=== PATIENT | female | born 1930 | race Hispanic/Latino ===

== ENCOUNTER 2016-08-19 05:56 | Inpatient (IN) | payer MEDICARE ==
[2016-08-19] MEDS ORDERED: TORADOL ONE (06:23)
[2016-08-19] MEDS ORDERED: ZOFRAN ONE (06:23)
[2016-08-19] MEDS ORDERED: TORADOL IV ONE (06:41)
[2016-08-19] MEDS ORDERED: ZOFRAN IV ONE (06:41)
--- NOTE | 2016-08-19 08:14 | XRay Report ---
RIGHT ANKLE, 2 views: History: Pain. Osteopenia. Comminuted, mildly displaced, mildly angulated fractures of the distal tibial and fibular shafts are identified. Lateral displacement at the tibial fracture site measures up to 1.5 cm. Posterior angulation measures 15 degrees. The proximal tibia and fibula are intact. Normal articulation at the knee and ankle. Soft tissue swelling. IMPRESSION: Traumatic fractures of the distal tibia and fibula as described. Osteopenia.
[2016-08-19] MEDS ORDERED: MORPHINE IV ONE ×2 (08:48→12:56)
[2016-08-19] MEDS ORDERED: NACL 0.9% 1000 ML 1,000 ML IV ONE (08:52)
[2016-08-19] MEDS ORDERED: VANCOMYCIN PHARMACY TO DOSE IV SCH (09:00)
--- NOTE | 2016-08-19 09:03 | Admit Criteria Form ---
Admission Criteria Documentation: MUSCULOSKELETAL DISEASE GRG Clinical Indications for Admission to Inpatient Care (Place 'X' for any and all applicable criteria): Hospital admission is needed for appropriate care of the patient because of 1 or more of the following: [ X]I. Fracture, dislocation, or other musculoskeletal injury requiring inpatient care(medical) as indicated by 1 or more of the following(4)(5)(6)(7) [ ]a) Vertebral fracture requiring observation for instability or neurologic compromise (8) [ ]b) Compartment syndrome (proven or cannot be ruled out during observation level of care) (9) [ ]c) Limb-threatening injury [ ]d) Major injury requiring inpatient stabilization such as traction initiation or external fixation before internal fixation or closure of complex or open fracture [X ]e) Major injury requiring inpatient treatment after emergency or observation level care (as appropriate) [ ]f) Severe pain requiring acute inpatient management [ ]g) Injury with suspicion of abuse or neglect (eg., child, dependent elderly) [ ]II. Newly diagnosed or suspected bone, joint, or orthopedic device infection (e.g., osteomyelitis, septic arthritis) needing 1 or more of the following(1)(2)(3) [ ]a) IV antibiotics that cannot be initiated in other than inpatient setting (e.g., patient too unstable or home infusion not available) [ ]b) Device removal or replacement [ ]c) Bone or soft tissue debridement [ ]d) Joint drainage (drain placement or repetitive aspirations) [ ]III. Severe rheumatologic disease (e.g., systemic lupus erythematosus, rheumatoid arthritis) with complications or comorbidities (Also use Optimal Recovery Care Criteria or General Recovery Criteria as appropriate on the basis of predominant condition), including 1 or more of the following( 10)(11)(12)(13) [ ]a) Severe infection (e.g., [employer] SAL[employer] infection, sepsis) (14) [ ]b) Respiratory complications, including 1 or more of the following : [ ]i) Pleural effusion with respiratory compromise [ ]ii) Pulmonary hypertension with congestive failure [ ]iii) Respiratory failure [ ]iv) Pulmonary hemorrhage (15) [ ]c) Hematologic disease, including 1 or more of the following: [ ]i) Coagulopathy with bleeding [ ]ii) Thrombosis with hypercoagulable state [ ]iii) Thrombotic thrombocytopenic purpura [ ]d) Cerebritis with seizures, psychosis, or other severe abnormalities [ ]e) Vertebral destruction with monitoring needed for cervical myelopathy& possible respiratory compromise [ ]f) Exacerbation that requires inpatient treatment (e.g., intravenous immunosuppression) (16) [ ]g) Acute renal failure [ ]h) Cerebritis with seizures, psychosis, Altered mental status, or other neurologic abnormalities [ ]i) Pericardial effusion with tamponade [ ]j) Vertebral destruction, with monitoring needed for cervical myelopathy and possible respiratory compromise [ ]IV. Severe vasculitis with complications or comorbidities (Also use Optimal Recovery Care Criteria General Recovery Criteria as appropriate on the basis of predominant condition), including 1 or more of the following(11)(12)(17)(18)(19)(20) [ ]a) Exacerbation that requires inpatient treatment (e.g., intravenous immunosuppression) (19)(21) [ ]b) Pulmonary hemorrhage (15) [ ]c) [employer] vasculitis with seizures, psychosis, Altered mental status that is severe or persistent, or other severe abnormalities (22) [ ]d) Cerebral infarction [ ]e) Gastrointestinal ischemia [ ]f) Gangrene or threatened amputation [ ]g) Renal failure (16) [ ]h) Other significant complications of vasculitis ( eg., tissue or organ ischemia, organ dysfunction ) [ ]V. Severe myopathy as indicated by 1 or more of the following (28)(29) [ ]a) New onset of airway compromise or inability to swallow [ ]b) Respiratory deterioration with observation needed for impending respiratory failure [ ]c) Exacerbation that requires inpatient treatment (e.g., intravenous immunosuppression) [ ]. Severe crystal gout (arthropathy) indicated by 1 or more of the following (23)(24) [ ]a) Severe pain requiring acute inpatient management [ ]b) Exacerbation that requires inpatient treatment (e.g., intravenous treatment) [ ]VII.Rhabdomyolysis and 1 or more of the following (25)(26)(27) [ ]a) Acute renal failure [ ]b) Need for intravenous hydration after emergency or observation level care (as appropriate) [ ]c) Inability to maintain oral hydration [ ]d) Change in mental status [ ]e) Electrolyte abnormality that remains after emergency or observation level care (as appropriate) [ ]VIII Post amputation complication, as indicated by ANY ONE of the following [ ]a) Infection [ ]b) Dehiscence [ ]c) Myodesis failure [ ]IX. Severe pain requiring acute inpatient management due to musculoskeletal condition [ ]X. Musculoskeletal Disease and ALL of the following: [ ]a) Symptom or finding for which emergency and observation care have failed or are not considered appropriate (Use General Criteria: Observation Care as appropriate) [ ]b) Presence of ANY ONE of the following [ ]i) A General Admission Criteria [ ]ii) A Pediatric General Admission Criteria The original [facility] [employer] content created by [facility] [employer] has been revised. The portions of the content which have been revised are identified through the use of italic text or in bold, and [facility] has neither reviewed nor approved the modified material. All other unmodified content is copyright [facility] [employer] Please see references footnoted in the original [facility] edition 2016 Admission Criteria Met: Yes
[2016-08-19 09:23] LABS: Basophils % (Auto) 0.4 % (0.0-1.8); Hematocrit 30.7 % (30.3-42.9); Hemoglobin 10.2 gm/dl (10.1-14.3); Mean Corpuscular HGB Conc 33 % (30-34); Mean Corpuscular Hemoglobin 32 pg (28-32); Mean Corpuscular Volume 96 fl (79-97); Platelet Count 219 K/mm3 (140-440); Red Blood Count 3.18 M/mm3 (3.65-5.03); Red Cell Distribution Width 14.6 % (13.2-15.2); White Blood Count 6.4 K/mm3 (4.5-11.0)
[2016-08-19 09:28] LABS: INR 0.98 (0.87-1.13)
[2016-08-19 09:29] LABS: Partial Thromboplastin Time 29.4 Sec. (24.2-36.6)
[2016-08-19 09:43] LABS: Alanine Aminotransferase 11 units/L (7-56); Albumin 3.5 g/dL (3.9-5); Albumin/Globulin Ratio 1.1 %; Alkaline Phosphatase 80 units/L (35-129); Anion Gap 15 mmol/L; Bilirubin,Total 0.3 mg/dL (0.1-1.2); Blood Urea Nitrogen 14 mg/dL (7-17); Calcium 8.9 mg/dL (8.4-10.2); Carbon Dioxide 27 mmol/L (22-30); Glucose 99 mg/dL (65-100); Potassium 4.1 mmol/L (3.6-5.0); Sodium 138 mmol/L (137-145); Total Protein 6.6 g/dL (6.3-8.2)
--- NOTE | 2016-08-19 10:03 | XRay Report ---
Single view chest: History: Possible sepsis. Findings: Cardiomegaly. Trachea is midline. No consolidation, pneumothorax or pleural effusion. Impression: No acute cardiopulmonary findings. 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
[2016-08-19] MEDS ORDERED: VANCOMYCIN 1,250 MG in NACL 0.9% 250ML 250 ML IV ONE (12:45)
--- NOTE | 2016-08-19 15:40 | Emergency Department Report ---
ED General Adult HPI - General Chief complaint: Fall Stated complaint: GROUND LEVEL FALL Time Seen by Provider: 08/19/16 08:48 Source: patient, EMS Mode of arrival: Stretcher Limitations: Physical Limitation - History of Present Illness Initial comments: The patient is ordinarily fully ambulatory. In the cat and dog bather a.m. hours she tripped and injured her right ankle. He complains of severe pain at the area above her ankle itself. She was unable to ambulate after the fall. She presents with her daughter. They state that she has gone to her primary care doctor over the last month for redness and swelling of the ankle itself. X-ray was obtained. It was negative. She has a history of prior cellulitis. However , she was not placed on antibiotics for the redness and swelling. She also has chronically scaly skin of the right ankle area. She does not report any break in the skin or any other previous injury. Patient states that she was not feeling ill prior to this fall. She had no prodromal symptoms. She did not pass out. -: Sudden Location: right, lower extremity Radiation: non-radiation Quality: aching Consistency: constant Improves with: none Worsens with: none Associated Symptoms: denies other symptoms Treatments Prior to Arrival: none - Related Data Home Medications Medication Instructions Recorded Confirmed Last Taken Aspirin [Aspirin BABY CHEW TAB] 81 mg PO QDAY 08/19/16 08/19/16 08/18/16 HYDROcodone/APAP 7.5-325 [[place] 1 each PO Q8HR PRN 08/19/16 08/19/16 Unknown 7.5/325] Hydrochlorothiazide [HCTZ] 25 mg PO QDAY 08/19/16 08/19/16 08/18/16 Meclizine [Antivert] 25 mg PO QID PRN 08/19/16 08/19/16 Unknown Oxybutynin [Ditropan] 5 mg PO BID 08/19/16 08/19/16 08/18/16 carBAMazepine [Carbamazepine ER] 0.5 tab PO TID 08/19/16 08/19/16 08/18/16 sulfaSALAzine [Azulfidine] 500 mg PO Q12HR 08/19/16 08/19/16 08/18/16 Allergies Allergy/AdvReac Type Severity Reaction Status Date / Time No Known Allergies Allergy Verified 08/19/16 06:32 ED Review of Systems ROS: Stated complaint: GROUND LEVEL FALL Other details as noted in HPI Constitutional: denies: chills, fever Eyes: denies: eye pain, eye discharge, vision change ENT: denies: ear pain, throat pain Respiratory: denies: cough, shortness of breath, wheezing Cardiovascular: denies: chest pain, palpitations Endocrine: no symptoms reported Gastrointestinal: denies: abdominal pain, nausea, diarrhea Genitourinary: denies: urgency, dysuria, discharge Musculoskeletal: as per HPI, joint swelling. denies: back pain, arthralgia Skin: as per HPI, rash, change in color. denies: lesions Neurological: denies: headache, weakness, paresthesias Psychiatric: denies: anxiety, depression Hematological/Lymphatic: denies: easy bleeding, easy bruising ED Past Medical Hx - Past Medical History Previous Medical History?: Yes Additional medical history: chron's Dz - Surgical History Past Surgical History?: Yes Additional Surgical History: Appy, Hip replacement pins in LLE - Social History Smoking Status: Former Smoker Substance Use Type: None - Medications Home Medications: Home Medications Medication Instructions Recorded Confirmed Last Taken Type Aspirin [Aspirin BABY CHEW TAB] 81 mg PO QDAY 08/19/16 08/19/16 08/18/16 History HYDROcodone/APAP 7.5-325 [[place] 1 each PO Q8HR PRN 08/19/16 08/19/16 Unknown History 7.5/325] Hydrochlorothiazide [HCTZ] 25 mg PO QDAY 08/19/16 08/19/16 08/18/16 History Meclizine [Antivert] 25 mg PO QID PRN 08/19/16 08/19/16 Unknown History Oxybutynin [Ditropan] 5 mg PO BID 08/19/16 08/19/16 08/18/16 History carBAMazepine [Carbamazepine ER] 0.5 tab PO TID 08/19/16 08/19/16 08/18/16 History sulfaSALAzine [Azulfidine] 500 mg PO Q12HR 08/19/16 08/19/16 08/18/16 History ED Physical Exam - General Limitations: Physical Limitation General appearance: alert, in no apparent distress - Head Head exam: Present: atraumatic, normocephalic - Eye Eye exam: Present: normal appearance, PERRL, EOMI. Absent: scleral icterus - ENT ENT exam: Present: normal exam, mucous membranes moist - Neck Neck exam: Present: normal inspection - Respiratory Respiratory exam: Present: normal lung sounds bilaterally. Absent: respiratory distress - Cardiovascular Cardiovascular Exam: Present: regular rate, normal rhythm. Absent: systolic murmur, diastolic murmur, rubs, gallop - GI/Abdominal GI/Abdominal exam: Present: soft, normal bowel sounds. Absent: distended, tenderness, guarding, rebound, rigid - Extremities Exam Extremities exam: Present: normal inspection - Back Exam Back exam: Present: normal inspection - Neurological Exam Neurological exam: Present: alert, oriented X3, CN II-XII intact. Absent: motor sensory deficit - Psychiatric Psychiatric exam: Present: normal affect, normal mood - Skin Skin exam: Present: warm, dry, intact, normal color, erythema (scaling of the skin of the right ankle but it is intact. There is some ecchymosis). Absent: rash ED Course Vital Signs 08/19/16 08/19/16 08/19/16 06:15 06:30 06:43 Temperature Pulse Rate 71 66 Respiratory 15 12 16 Rate Blood Pressure 157/72 O2 Sat by Pulse 96 Oximetry 08/19/16 08/19/16 08/19/16 06:46 07:00 07:08 Temperature 98.3 F Pulse Rate 73 68 Respiratory 14 12 16 Rate Blood Pressure 156/76 141/69 O2 Sat by Pulse 92 90 98 Oximetry 08/19/16 08/19/16 08/19/16 07:13 07:30 08:00 Temperature Pulse Rate 75 67 Respiratory 18 24 20 Rate Blood Pressure 141/69 138/67 O2 Sat by Pulse 93 94 Oximetry 08/19/16 08/19/16 08/19/16 08:30 09:00 09:15 Temperature Pulse Rate 85 79 Respiratory 22 15 18 Rate Blood Pressure 150/69 150/69 O2 Sat by Pulse 96 90 Oximetry 08/19/16 08/19/16 08/19/16 09:30 09:45 10:00 Temperature Pulse Rate 85 78 Respiratory 16 18 15 Rate Blood Pressure 131/66 122/72 O2 Sat by Pulse 92 92 Oximetry 08/19/16 08/19/16 08/19/16 10:30 11:00 11:30 Temperature Pulse Rate 73 74 76 Respiratory 14 14 11 L Rate Blood Pressure 121/61 113/56 113/56 O2 Sat by Pulse 93 90 95 Oximetry 08/19/16 08/19/16 08/19/16 12:00 12:30 12:57 Temperature Pulse Rate 76 71 Respiratory 16 12 18 Rate Blood Pressure 107/66 117/54 O2 Sat by Pulse 95 94 Oximetry 08/19/16 08/19/16 08/19/16 13:00 13:27 13:30 Temperature Pulse Rate 76 Respiratory 12 18 17 Rate Blood Pressure 147/69 134/79 O2 Sat by Pulse 95 92 Oximetry 08/19/16 08/19/16 14:00 14:30 Temperature Pulse Rate 45 L 73 Respiratory 18 19 Rate Blood Pressure 137/67 140/64 O2 Sat by Pulse 91 91 Oximetry - Reevaluation(s) Reevaluation #1: The patient appears to have a cellulitis of the right ankle which predates her injury today. She was placed on vancomycin for this. She was admitted to the hospitalist service. She was placed in a posterior splint. He orthopedist Dr. Bernabe was informed in consultation. 08/19/16 15:42 ED Medical Decision Making - Lab Data Result diagrams: 08/19/16 08:57 08/19/16 08:57 Laboratory Results - last 24 hr 08/19/16 08/19/16 08/19/16 08:57 08:57 08:57 WBC 6.4 RBC 3.18 L Hgb 10.2 Hct 30.7 MCV 96 MCH 32 MCHC 33 RDW 14.6 Plt Count 219 Lymph % (Auto) 14.1 [place] % (Auto) 7.0 Eos % (Auto) 2.0 Baso % (Auto) 0.4 Lymph # 0.9 L [place] # 0.4 Eos # 0.1 Baso # 0.0 Seg Neutrophils % 76.5 H Seg Neutrophils # 4.9 PT 12.9 INR 0.98 APTT 29.4 VBG pH Sodium 138 Potassium 4.1 Chloride 100.0 Carbon Dioxide 27 Anion Gap 15 BUN 14 Creatinine 0.7 Estimated GFR > 60 BUN/Creatinine Ratio 20.00 Glucose 99 Lactic Acid Calcium 8.9 Total Bilirubin 0.3 AST 18 ALT 11 Alkaline Phosphatase 80 Total Protein 6.6 Albumin 3.5 L Albumin/Globulin Ratio 1.1 Blood Type Antibody Screen 08/19/16 08/19/16 08/19/16 08:57 08:57 08:57 WBC RBC Hgb Hct MCV MCH MCHC RDW Plt Count Lymph % (Auto) [place] % (Auto) Eos % (Auto) Baso % (Auto) Lymph # [place] # Eos # Baso # Seg Neutrophils % Seg Neutrophils # PT INR APTT VBG pH 7.362 Sodium Potassium Chloride Carbon Dioxide Anion Gap BUN Creatinine Estimated GFR BUN/Creatinine Ratio Glucose Lactic Acid 1.2 Calcium Total Bilirubin AST ALT Alkaline Phosphatase Total Protein Albumin Albumin/Globulin Ratio Blood Type O POSITIVE Antibody Screen Negative - Radiology Data interpreted by me: There is a displaced comminuted both bone fracture of the distal third of the tib-fib of the right leg. It is well above the ankle itself. Chest x-ray shows severe scoliosis with previous kyphoplasty Critical care attestation.: If time is entered above; I have spent that time in minutes in the direct care of this critically ill patient, excluding procedure time. ED Disposition Clinical Impression: Cellulitis of right ankle Fracture of lower leg, closed Qualifiers: Encounter type: initial encounter Laterality: right Qualified Code(s): S82.91XA - Unspecified fracture of right lower leg, initial encounter for closed fracture Disposition: OP ADMITTED IP TO THIS HOSP Is pt being admited?: Yes Does the pt Need Aspirin: Yes Condition: Stable Referrals: PRIMARY CARE, [Primary Care Provider] - 3-5 Days Time of Disposition: 15:45
[2016-08-19] MEDS ORDERED: DILAUDID IV ONE (19:04)
[2016-08-19] MEDS ORDERED: DILAUDID ONE (19:04)
--- NOTE | 2016-08-19 19:05 | History and Physical Report ---
History of Present Illness Chief complaint: I fell and broke my leg History of present illness: 86 YO Female with HTN, Vertigo, Chron's disease presents to ED for evaluation. Pt states that she tripped and fell while walking this morning. Pt states that she was unable to bear weight on her right foot after the fall. Pt denies fever , chills, CP, Palpitation, NVD, Syncope, Seizure, loss of bowel or bladder continence, headache, BRBPR, difficulty breathing, productive cough, or recent ill contacts. Past History Past Medical History: hypertension Past Surgical History: appendectomy, total hip replacement Social history: . denies: smoking, alcohol abuse, prescription drug abuse Family history: hypertension Medications and Allergies Allergies Allergy/AdvReac Type Severity Reaction Status Date / Time No Known Allergies Allergy Verified 08/19/16 06:32 Home Medications Medication Instructions Recorded Confirmed Last Taken Type Aspirin [Aspirin BABY CHEW TAB] 81 mg PO QDAY 08/19/16 08/19/16 08/18/16 History HYDROcodone/APAP 7.5-325 [[place] 1 each PO Q8HR PRN 08/19/16 08/19/16 Unknown History 7.5/325] Hydrochlorothiazide [HCTZ] 25 mg PO QDAY 08/19/16 08/19/16 08/18/16 History Meclizine [Antivert] 25 mg PO QID PRN 08/19/16 08/19/16 Unknown History Oxybutynin [Ditropan] 5 mg PO BID 08/19/16 08/19/16 08/18/16 History carBAMazepine [Carbamazepine ER] 0.5 tab PO TID 08/19/16 08/19/16 08/18/16 History sulfaSALAzine [Azulfidine] 500 mg PO Q12HR 08/19/16 08/19/16 08/18/16 History Active Meds: Active Medications Vancomycin HCl (Vancomycin/Ns 1 Gm/250 Ml) 1 gm in 250 mls @ 166.667 mls/hr IV Q18H RICARDO Vancomycin HCl (Vancomycin Pharmacy To Dose) 1 each IV PKCONSULT RICARDO PRN Reason: Protocol Review of Systems All systems: negative Constitutional: other (fall) Exam - Constitutional Vitals: Temp Pulse Resp BP Pulse Ox 98.3 F 97 H 16 157/74 88 08/19/16 07:08 08/19/16 18:00 08/19/16 18:00 08/19/16 18:00 08/19/16 18:00 General appearance: Present: cachectic - EENT Eyes: Present: PERRL ENT: hearing intact, clear oral mucosa - Neck Neck: Present: supple, normal ROM - Respiratory Respiratory effort: normal Respiratory: bilateral: CTA - Cardiovascular Heart Sounds: Present: S1 & S2. Absent: rub, click - Extremities Extremities: pulses symmetrical, No edema Peripheral Pulses: within normal limits - Abdominal General gastrointestinal: Present: soft, non-tender, non-distended, normal bowel sounds Female genitourinary: Present: normal - Integumentary Integumentary: Present: clear, warm, dry - Musculoskeletal Musculoskeletal: strength equal bilaterally, other (RLE splint in place. ) - Psychiatric Psychiatric: appropriate mood/affect, intact judgment & insight - Neurologic Neurologic: CNII-XII intact, moves all extremities Results - Labs CBC & Chem 7: 08/19/16 08:57 08/19/16 08:57 Labs: Abnormal lab results 08/19/16 08/19/16 Range/Units 08:57 08:57 RBC 3.18 L (3.65-5.03) M/mm3 Lymph # 0.9 L (1.2-5.4) K/mm3 Seg Neutrophils % 76.5 H (40.0-70.0) % Albumin 3.5 L (3.9-5) g/dL Assessment and Plan - Patient Problems (1) Accelerated hypertension Current Visit: Yes Status: Acute Plan to address problem: Monitor BP q shift, continue current therapy. (2) Pain Current Visit: Yes Status: Acute Plan to address problem: Pain control, with percocet, and dilaudid tid/prn. (3) Dementia Current Visit: Yes Status: Acute Qualifiers: Dementia type: D Alzheimer's disease onset: A Dementia behavioral disturbance: D Plan to address problem: Fall precautions, supportive care, (4) Debility Current Visit: Yes Status: Acute Plan to address problem: Bed alarm, fall precautions. PT consulted, (5) Fracture of lower leg, closed Current Visit: Yes Status: Acute Qualifiers: Encounter type: initial encounter Laterality: right Fracture healing: F Qualified Code(s): S82.91XA - Unspecified fracture of right lower leg, initial encounter for closed fracture Plan to address problem: Ortho consulted, hold aspirin pending surgical intervention. (6) DVT prophylaxis Current Visit: Yes Status: Acute
[2016-08-19] MEDS ORDERED: NORCO 5/325 PO PRN (19:16)
[2016-08-19] MEDS ORDERED: ZOFRAN IV PRN (19:16)
[2016-08-19] MEDS ORDERED: TYLENOL PO PRN (19:16)
[2016-08-19] MEDS ORDERED: MILK OF MAGNESIA PO PRN (19:16)
[2016-08-19] MEDS ORDERED: DULCOLAX PR PRN (19:16)
[2016-08-19] MEDS ORDERED: ANTIVERT PO PRN (19:21)
[2016-08-19] MEDS ORDERED: CARBAMAZEPINE PO SCH (20:00)
[2016-08-19] MEDS: AZULFIDINE PO SCH (23:35)
[2016-08-19] MEDS: DITROPAN PO SCH (23:35)
[2016-08-19] MEDS: SENOKOT S PO SCH (23:35)
[2016-08-19 23:48] LABS: Bacteria,Urine 1+ /HPF (Negative); Bilirubin,Urine NEG (Negative); Blood,Urine SM (Negative); Ketones,Urine NEG (Negative); Leukocyte Esterase,Urine LG (Negative); Mucus,Urine FEW /HPF; Nitrite,Urine POS (Negative); Protein,Urine <15 mg/dL mg/dL (Negative); Urobilinogen,Urine < 2.0 mg/dL (<2.0)
[2016-08-20] MEDS ORDERED: NACL 0.9% 1000 ML 1,000 ML ONE ×2 (05:31→11:58)
[2016-08-20] MEDS: VANCOMYCIN/NS 1 GM/250 ML 1 GM/250 ML BAG IV SCH (06:08)
[2016-08-20] MEDS: DILAUDID IV PRN ×6 (06:12→20:06)
--- NOTE | 2016-08-20 08:42 | Progress Note ---
Assessment and Plan Assessment and plan: 86 YO Female with HTN, Vertigo, Chron's disease presents to ED for evaluation. Pt states that she tripped and fell while walking. Pt stated that she was unable to bear weight on her right foot after the fall. X-rays from the emergency room showed a right displaced tib-fib fracture as well as evidence of osteoporosis. (1) Accelerated hypertension Current Visit: Yes Status: Acute Plan to address problem: Monitor BP q shift, continue current therapy. (2) Pain Current Visit: Yes Status: Acute Plan to address problem: Pain control, with percocet, and dilaudid tid/prn. (3) Dementia Current Visit: Yes Status: Acute Qualifiers: Dementia type: D Alzheimer's disease onset: A Dementia behavioral disturbance: D Plan to address problem: Fall precautions, supportive care, (4) Debility Current Visit: Yes Status: Acute Plan to address problem: Bed alarm, fall precautions. PT consulted, (5) Fracture of lower leg, closed Current Visit: Yes Status: Acute Qualifiers: Encounter type: initial encounter Laterality: right Fracture healing: F Qualified Code(s): S82.91XA - Unspecified fracture of right lower leg, initial encounter for closed fracture Plan to address problem: Ortho consulted, hold aspirin pending surgical intervention. s/p surgery today (6) DVT prophylaxis Current Visit: Yes Status: Acute lovenox History Interval history: Patient seen and examined at PACU. Medical records and medication list reviewed. No acute event overnight noted by the RN. Patient denies any chest pain or difficulty breathing. Patient tolerated the surgery. c/o rt ankle pain. Discussed plan of care at bedside with patient and her daughter. Hospitalist Physical - Physical exam Narrative exam: General appearance: Present: elderly WF - EENT Eyes: Present: PERRL ENT: hearing intact, clear oral mucosa - Neck Neck: Present: supple, normal ROM - Respiratory Respiratory effort: normal Respiratory: bilateral: CTA - Cardiovascular Heart Sounds: Present: S1 & S2. Absent: rub, click - Extremities Extremities: pulses symmetrical, No edema Peripheral Pulses: within normal limits - Abdominal General gastrointestinal: Present: soft, non-tender, non-distended, normal bowel sounds Female genitourinary: Present: normal - Integumentary Integumentary: Present: clear, warm, dry - Musculoskeletal Musculoskeletal: strength equal bilaterally, other (RLE surgical dressing in place. ) - Psychiatric Psychiatric: appropriate mood/affect, intact judgment & insight - Neurologic Neurologic: CNII-XII intact, moves all extremities - Constitutional Vitals: Temp Pulse Resp BP Pulse Ox 98.9 F 75 16 123/63 95 08/20/16 07:49 08/20/16 07:49 08/20/16 07:49 08/20/16 07:49 08/20/16 07:49 Results - Labs CBC & Chem 7: 08/21/16 00:23 08/19/16 08:57 Labs: Laboratory Last Values WBC 6.4 K/mm3 (4.5-11.0) 08/19/16 08:57 RBC 3.18 M/mm3 (3.65-5.03) L 08/19/16 08:57 Hgb 10.2 gm/dl (10.1-14.3) 08/19/16 08:57 Hct 30.7 % (30.3-42.9) 08/19/16 08:57 MCV 96 fl (79-97) 08/19/16 08:57 MCH 32 pg (28-32) 08/19/16 08:57 MCHC 33 % (30-34) 08/19/16 08:57 RDW 14.6 % (13.2-15.2) 08/19/16 08:57 Plt Count 219 K/mm3 (140-440) 08/19/16 08:57 Lymph % (Auto) 14.1 % (13.4-35.0) 08/19/16 08:57 [place] % (Auto) 7.0 % (0.0-7.3) 08/19/16 08:57 Eos % (Auto) 2.0 % (0.0-4.3) 08/19/16 08:57 Baso % (Auto) 0.4 % (0.0-1.8) 08/19/16 08:57 Lymph # 0.9 K/mm3 (1.2-5.4) L 08/19/16 08:57 [place] # 0.4 K/mm3 (0.0-0.8) 08/19/16 08:57 Eos # 0.1 K/mm3 (0.0-0.4) 08/19/16 08:57 Baso # 0.0 K/mm3 (0.0-0.1) 08/19/16 08:57 Seg Neutrophils % 76.5 % (40.0-70.0) H 08/19/16 08:57 Seg Neutrophils # 4.9 K/mm3 (1.8-7.7) 08/19/16 08:57 PT 12.9 Sec. (12.2-14.9) 08/19/16 08:57 INR 0.98 (0.87-1.13) 08/19/16 08:57 APTT 29.4 Sec. (24.2-36.6) 08/19/16 08:57 VBG pH 7.362 (7.320-7.420) 08/19/16 08:57 Sodium 138 mmol/L (137-145) 08/19/16 08:57 Potassium 4.1 mmol/L (3.6-5.0) 08/19/16 08:57 Chloride 100.0 mmol/L (98-107) 08/19/16 08:57 Carbon Dioxide 27 mmol/L (22-30) 08/19/16 08:57 Anion Gap 15 mmol/L 08/19/16 08:57 BUN 14 mg/dL (7-17) 08/19/16 08:57 Creatinine 0.7 mg/dL (0.7-1.2) 08/19/16 08:57 Estimated GFR > 60 ml/min 08/19/16 08:57 BUN/Creatinine Ratio 20.00 % 08/19/16 08:57 Glucose 99 mg/dL (65-100) 08/19/16 08:57 Lactic Acid 1.2 mmol/L (0.7-2.0) 08/19/16 08:57 Calcium 8.9 mg/dL (8.4-10.2) 08/19/16 08:57 Total Bilirubin 0.3 mg/dL (0.1-1.2) 08/19/16 08:57 AST 18 units/L (5-40) 08/19/16 08:57 ALT 11 units/L (7-56) 08/19/16 08:57 Alkaline Phosphatase 80 units/L (35-129) 08/19/16 08:57 Total Protein 6.6 g/dL (6.3-8.2) 08/19/16 08:57 Albumin 3.5 g/dL (3.9-5) L 08/19/16 08:57 Albumin/Globulin Ratio 1.1 % 08/19/16 08:57 Urine Color Yellow (Yellow) 08/19/16 22:55 Urine Turbidity Clear (Clear) 08/19/16 22:55 Urine pH 6.0 (5.0-7.0) 08/19/16 22:55 Ur Specific [place] 1.013 (1.003-1.030) 08/19/16 22:55 Urine Protein <15 mg/dl mg/dL (Negative) 08/19/16 22:55 Urine Glucose (UA) Neg mg/dL (Negative) 08/19/16 22: Urine Ketones Neg mg/dL (Negative) 08/19/16 22: Urine Blood Sm (Negative) 08/19/16 22:55 Urine Nitrite Pos (Negative) 08/19/16 22:55 Urine Bilirubin Neg (Negative) 08/19/16 22: Urine Urobilinogen < 2.0 mg/dL (<2.0) 08/19/16 22:55 Ur Leukocyte Esterase Lg (Negative) 08/19/16 22:55 Urine WBC (Auto) 135.0 /HPF (0.0-6.0) H 08/19/16 22:55 Urine RBC (Auto) 2.0 /HPF (0.0-6.0) 08/19/16 22:55 U Epithel Cells (Auto) 3.0 /HPF (0-13.0) 08/19/16 22:55 Urine Bacteria (Auto) 1+ /HPF (Negative) 08/19/16 22: Urine Mucus Few /HPF 08/19/16 22:55 Blood Type O POSITIVE 08/19/16 08:57 Antibody Screen Negative 08/19/16 08:57
[2016-08-20] MEDS: AZULFIDINE PO SCH ×2 (09:12→22:41)
[2016-08-20] MEDS: DITROPAN PO SCH ×2 (09:12→22:41)
[2016-08-20] MEDS: HCTZ PO SCH (09:13)
--- NOTE | 2016-08-20 10:13 | Anesthesia Consultation ---
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
--- NOTE | 2016-08-20 10:14 | Anesthesia Day of Surgery ---
Anesthesia Day of Surgery - Day of Surgery Patient Examined: Yes Patient H&P Reviewed: Yes Patient is NPO: Yes
[2016-08-20] MEDS ORDERED: VERSED ONE (10:53)
[2016-08-20] MEDS ORDERED: DIPRIVAN 10 MG/ML IV ONE (10:53)
[2016-08-20] MEDS ORDERED: XYLOCAINE MPF 2% ONE (11:28)
[2016-08-20] MEDS ORDERED: SODIUM CHLORIDE FLUSH SYRINGE 10 ML IV NR (13:00)
--- NOTE | 2016-08-20 13:05 | Procedure Note ---
Date of procedure: 08/20/16 Pre-op diagnosis: right tib-fib fracture Post-op diagnosis: same Procedure: Procedure closed reduction and insertion of intramedullary nail right tibia Indications 86-year-old female fell at home sustaining a displaced distal third tibia fibula fracture closed Procedure Patient was brought to the OR on the hospital bed she was given a spinal anesthesia following this the patient was transferred to the operating table and placed in a supine position. The right lower extremity was then prepped and draped in the usual sterile manner a timeout procedure was done to identify the proper operative site. A midline incision was made over the patellar tendon this was taken down sharply to skin and subcutaneous next the entry point to the medullary canal was assessed using digital palpation was followed by insertion of a awl. Next a guidewire was then inserted down the shaft crossed the fracture site this is done using C-arm fluoroscopy next the canal was reamed to 12.5 mm diameter measuring the length of the oscar 330 mm long oscar was selected following this the wound was irrigated and the nail was inserted using a antegrade technique following insertion of the IM nail this was then locked proximally as well as distally again AP and lateral views were used to assess the reduction and placement of the hardware. Following this the incisions were again irrigated using normal saline solution I was closed in a standard routine fashion and dressings were applied the patient tolerated procedure and no complications Anesthesia: spinal Surgeon: ALEJANDRINA GALVEZ Estimated blood loss: minimal Pathology: none Condition: stable Disposition: PACU
--- NOTE | 2016-08-20 13:08 | Consultation ---
History of Present Illness - [facility] Consult date: 08/20/16 Consult reason: fracture History of present illness: 86-year-old female who fell at home and afterwards was unable to weight-bear on her right lower extremity she was brought to the emergency room x-rays were obtained revealing a displaced distal tibia-fibula fracture. She denies any other complaints Past History Past Medical History: hypertension Past Surgical History: appendectomy, total hip replacement Social history: . denies: smoking, alcohol abuse, prescription drug abuse Family history: hypertension Medications and Allergies Allergies Allergy/AdvReac Type Severity Reaction Status Date / Time No Known Allergies Allergy Verified 08/19/16 06:32 Home Medications Medication Instructions Recorded Confirmed Last Taken Type Aspirin [Aspirin BABY CHEW TAB] 81 mg PO QDAY 08/19/16 08/19/16 08/18/16 History HYDROcodone/APAP 7.5-325 [[place] 1 each PO Q8HR PRN 08/19/16 08/19/16 Unknown History 7.5/325] Hydrochlorothiazide [HCTZ] 25 mg PO QDAY 08/19/16 08/19/16 08/18/16 History Meclizine [Antivert] 25 mg PO QID PRN 08/19/16 08/19/16 Unknown History Oxybutynin [Ditropan] 5 mg PO BID 08/19/16 08/19/16 08/18/16 History carBAMazepine [Carbamazepine ER] 0.5 tab PO TID 08/19/16 08/19/16 08/18/16 History sulfaSALAzine [Azulfidine] 500 mg PO Q12HR 08/19/16 08/19/16 08/18/16 History Active Meds: Active Medications Acetaminophen (Tylenol) 650 mg PO Q4H PRN PRN Reason: Pain MILD(1-3)/Fever >100.5/GARCIA Acetaminophen/Hydrocodone Bitart ([place] 5/325) 1 each PO Q6H PRN PRN Reason: Pain, Moderate (4-6) Last Admin: 08/19/16 23:35 Dose: 1 each Bisacodyl (Dulcolax) 10 mg IA QDAY PRN PRN Reason: Constipation unrelieved by MOM Carbamazepine (Tegretol) 100 mg PO TID RICARDO Last Admin: 08/20/16 09:13 Dose: 100 mg Enoxaparin Sodium (Lovenox) 40 mg SUB-Q QDAY [facility] Hydrochlorothiazide (Hctz) 25 mg PO QDAY [facility] Last Admin: 08/20/16 09:13 Dose: 25 mg Hydromorphone HCl (Dilaudid) 0.5 mg IV Q6H PRN PRN Reason: Pain , Severe (7-10) Last Admin: 08/20/16 06:12 Dose: 0.5 mg Vancomycin HCl (Vancomycin/Ns 1 Gm/250 Ml) 1 gm in 250 mls @ 166.667 mls/hr IV Q18H [facility] Last Admin: 08/20/16 06:08 Dose: 166.667 mls/hr Magnesium Hydroxide (Milk Of Magnesia) 30 ml PO Q4H PRN PRN Reason: Constipation Meclizine HCl (Antivert) 25 mg PO QID PRN PRN Reason: Vertigo Ondansetron HCl (Zofran) 4 mg IV Q8H PRN PRN Reason: N/V unrelieved by Reglan Last Admin: 08/20/16 06:19 Dose: 4 mg Oxybutynin Chloride (Ditropan) 5 mg PO BID [facility] Last Admin: 08/20/16 09:12 Dose: 5 mg Senna/Docusate Sodium (Senokot S) 1 tab PO QHS [facility] Last Admin: 08/19/16 23:35 Dose: 1 tab Sodium Chloride (Sodium Chloride Flush Syringe 10 Ml) 10 ml IV PRN NR Sulfasalazine (Azulfidine) 500 mg PO Q12HR [facility] Last Admin: 08/20/16 09:12 Dose: 500 mg Vancomycin HCl (Vancomycin Pharmacy To Dose) 1 each IV PKCONSULT RICARDO PRN Reason: Protocol Physical Examination - Physical exam Narrative exam: A well-nourished well-developed elderly female in no obvious distress head and neck exam normocephalic atraumatic neck was supple and nontender significant orthopedic findings relates to the lower extremities on the right leg she was noted to have obvious deformity with gross motion detected at the distal third portion of the leg the skin was intact as well as the distal neurovascular status X-rays from the emergency room were reviewed by me and show a right displaced tib-fib fracture as well as evidence of osteoporosis Assessment and Plan Assessment right tib-fib fracture displaced Recommendation patient will require operative fixation with intramedullary oscar by physical therapy for gait training
[2016-08-20] MEDS ORDERED: ZOFRAN IV PRN (13:53)
[2016-08-20] MEDS ORDERED: DILAUDID ONE (14:00)
--- NOTE | 2016-08-20 16:46 | Post Anesthesia Evaluation ---
- Post Anesthesia Evaluation Patient Participated: Yes Airway Patent: Yes Stable Respiratory Function: Yes Nausea/Vomiting: No Temp > 96.8F: Yes Pain Manageable: Yes Adequeate Hydration: Yes Anesthesia Complications: No
[2016-08-20] MEDS: NACL 0.9% 1000 ML 1,000 ML IV SCH (20:11)
[2016-08-20] MEDS: SENOKOT S PO SCH (22:41)
[2016-08-21] MEDS: VANCOMYCIN/NS 1 GM/250 ML 1 GM/250 ML BAG IV SCH ×2 (00:34→18:53)
[2016-08-21 00:53] LABS: Hematocrit 24.5 % (30.3-42.9); Hemoglobin 8.2 gm/dl (10.1-14.3); Mean Corpuscular HGB Conc 33 % (30-34); Mean Corpuscular Hemoglobin 33 pg (28-32); Mean Corpuscular Volume 98 fl (79-97); Platelet Count 160 K/mm3 (140-440); Red Cell Distribution Width 14.5 % (13.2-15.2); White Blood Count 6.8 K/mm3 (4.5-11.0)
--- NOTE | 2016-08-21 06:05 | Cat Scan Report ---
FINAL REPORT PROCEDURE: CT HEAD/BRAIN WO CON TECHNIQUE: Computerized tomography of the head was performed without contrast material. HISTORY: Change in mental status COMPARISON: No prior studies are available for comparison. FINDINGS: Skull and scalp: Normal. Paranasal sinuses: Normal. Ventricles and subarachnoid spaces: There is moderate cerebral atrophy. Cerebrum: No evidence of hemorrhage, acute infarction or mass . Cerebellum and brainstem: No evidence of hemorrhage, acute infarction or mass. Vasculature: Normal. Comments: Some patchy areas of low density in the cerebral hemisphere white matter is nonspecific but could be due to mild chronic small vessel ischemic change. Other vague areas of low density may be due to a CT scan artifact. There may be small old lacunar infarcts in the basal ganglia bilaterally. There is mild motion artifact on some slices which partially limits this exam. IMPRESSION: 1. There is no CT evidence of intracranial hemorrhage or edema or shift or distinct acute finding on this noncontrast scan. 2. Moderate atrophy. Mild chronic small vessel ischemic change. 3. Some probable tiny old lacunar infarcts in the basal ganglia bilaterally. 4. Mild motion artifact on some slices partially limits this exam.
--- NOTE | 2016-08-21 06:24 | Event Note ---
Date: 08/21/16 patient slurred speech, morphine given earlier Check CT head
[2016-08-21] MEDS: NACL 0.9% 1000 ML 1,000 ML IV SCH (08:54)
[2016-08-21] MEDS: LOVENOX SUB-Q SCH (09:10)
[2016-08-21] MEDS: AZULFIDINE PO SCH ×2 (09:10→23:42)
[2016-08-21] MEDS: HCTZ PO SCH (09:10)
[2016-08-21] MEDS: DITROPAN PO SCH ×2 (09:10→23:42)
--- NOTE | 2016-08-21 10:28 | XRay Report ---
FLUOROSCOPIC INTRAOPERATIVE IMAGE RIGHT TIBIA: 08/20/16 CLINICAL: Fracture. FINDINGS: A single AP view shows a tibial oscar with a single screw traversing the comminuted fracture of the distal tibia. The screw appears to extend into the distal fibula. Comminuted mildly displaced fracture of the distal fibula. For details, please refer to the operative report.
--- NOTE | 2016-08-21 10:29 | XRay Report ---
INTRAOPERATIVE FLUOROSCOPIC IMAGES RIGHT ANKLE 2 VIEWS: 08/19/16 19:16:00 FINDINGS: AP and lateral fluoroscopic images demonstrate placement of a tibial oscar with a single screw. The oscar traverses a comminuted fracture of the distal tibia. Mildly displaced comminuted fracture of the distal fibula. For more details, please refer to the operative report.
[2016-08-21] MEDS: ASPIRIN PO SCH (10:57)
--- NOTE | 2016-08-21 14:59 | XRay Report ---
FINAL REPORT PROCEDURE: XR CHEST 1V AP TECHNIQUE: Chest radiograph anteroposterior view. CPT 36112 HISTORY: Aspiration COMPARISON: No prior studies are available for comparison. FINDINGS: Heart: Normal. Mediastinum/Vessels: Normal. Lungs/Pleural space: Likely mild areas of scarring are seen in the lungs without evidence of focal infiltrate. No evidence of hyperinflation is seen to suggest COPD. Bony thorax: Prominent thoracolumbar scoliosis is seen with multiple compression deformities, some of which have been previously treated. Life support devices: None. IMPRESSION: No acute cardiopulmonary abnormality. Likely mild scarring is seen in the lungs. Treated and untreated thoracic and lumbar compression deformities are seen.
[2016-08-21] MEDS: LEVAQUIN 750MG/150ML 750 MG/150 ML BAG IV SCH (15:05)
[2016-08-21 15:19] LABS: Anion Gap 17 mmol/L; Blood Urea Nitrogen 6 mg/dL (7-17); Calcium 7.6 mg/dL (8.4-10.2); Carbon Dioxide 24 mmol/L (22-30); Chloride 97.3 mmol/L (98-107); Glucose 128 mg/dL (65-100); Potassium 3.5 mmol/L (3.6-5.0); Sodium 135 mmol/L (137-145)
[2016-08-21] MEDS ORDERED: ATIVAN IV ONE (15:49)
--- NOTE | 2016-08-21 16:12 | Progress Note ---
Assessment and Plan 86 YO Female with HTN, Vertigo, Chron's disease presents to ED for evaluation. Pt states that she tripped and fell while walking. Pt stated that she was unable to bear weight on her right foot after the fall. X-rays from the emergency room showed a right displaced tib-fib fracture as well as evidence of osteoporosis. s/p surgery on 08/20/16, now developed slurred speech following surgery. --possible CVA CT head negative will wait MRI result place on aspirin and statin neuro consult if MRI positive --UTI place on levaquin, obtain urine CX --Dementia Fall precautions, supportive care, --Fracture of lower leg, closed Ortho consulted, s/p surgery 08/20/16 PT consultd --HTN will cont home meds --Anemia will monitor H and H --Hypokalemia replace --DVT prophylaxis lovenox Subjective Date of service: 08/21/16 Interval history: Patient seen and examined. Medical records and medication list reviewed. Discussed plan of care at bedside with her daughter. Patient appears to be more sleepy since last night, CT head negative, does not have any acute focal weakness per the nurse and daughter she is having slurred speech Objective - Exam Narrative Exam: General appearance: Present: elderly WF appears drowsy and mumbling words - EENT Eyes: Present: PERRL ENT: clear oral mucosa - Neck Neck: Present: supple, normal ROM - Respiratory Respiratory effort: normal Respiratory: bilateral: CTA - Cardiovascular Heart Sounds: Present: S1 & S2. Absent: rub, click - Extremities Extremities: pulses symmetrical, No edema Peripheral Pulses: within normal limits - Abdominal General gastrointestinal: Present: soft, non-tender, non-distended, normal bowel sounds Female genitourinary: Present: normal - Integumentary Integumentary: Present: clear, warm, dry - Musculoskeletal Musculoskeletal: other (RLE surgical dressing in place. ) - Psychiatric Psychiatric: unable to assess - Neurologic Neurologic: moves all extremities - Constitutional Vitals: Vital Signs - 12hr 08/21/16 08/21/16 08:00 13:00 Temperature 99.9 F H 100.9 F H Pulse Rate [ 82 103 H Right Brachial] Respiratory 18 20 Rate Blood Pressure 149/70 127/58 [Right Arm] O2 Sat by Pulse 98 98 Oximetry - Labs CBC & Chem 7: 08/21/16 00:23 08/21/16 14:47 Labs: Abnormal lab results 08/21/16 08/21/16 08/21/16 Range/Units 00:01 00:23 14:47 RBC 2.50 L (3.65-5.03) M/mm3 Hgb 8.2 L (10.1-14.3) gm/dl Hct 24.5 L D (30.3-42.9) % MCV 98 H (79-97) fl MCH 33 H (28-32) pg Sodium 135 L (137-145) mmol/L Potassium 3.5 L (3.6-5.0) mmol/L Chloride 97.3 L (98-107) mmol/L BUN 6 L (7-17) mg/dL Creatinine 0.5 L (0.7-1.2) mg/dL Glucose 128 H (65-100) mg/dL POC Glucose 119 H (70-105) Calcium 7.6 L (8.4-10.2) mg/dL
[2016-08-21] MEDS: SENOKOT S PO SCH (23:42)
[2016-08-22] MEDS: NACL 0.9% 1000 ML 1,000 ML IV SCH (04:33)
[2016-08-22 04:36] LABS: Basophils % (Auto) 0.4 % (0.0-1.8); Eosinophils % (Auto) 4.6 % (0.0-4.3); Hematocrit 22.4 % (30.3-42.9); Hemoglobin 7.5 gm/dl (10.1-14.3); Mean Corpuscular HGB Conc 33 % (30-34); Mean Corpuscular Hemoglobin 32 pg (28-32); Mean Corpuscular Volume 96 fl (79-97); Platelet Count 152 K/mm3 (140-440); Red Blood Count 2.33 M/mm3 (3.65-5.03); Red Cell Distribution Width 14.4 % (13.2-15.2)
[2016-08-22 04:43] LABS: Anion Gap 17 mmol/L; Blood Urea Nitrogen 4 mg/dL (7-17); Calcium 7.5 mg/dL (8.4-10.2); Carbon Dioxide 24 mmol/L (22-30); Chloride 95.7 mmol/L (98-107); Glucose 108 mg/dL (65-100); Potassium 3.4 mmol/L (3.6-5.0); Sodium 133 mmol/L (137-145)
[2016-08-22] MEDS: LOVENOX SUB-Q SCH ×2 (08:08→10:39)
[2016-08-22] MEDS: AZULFIDINE PO SCH ×3 (08:08→21:30)
[2016-08-22] MEDS: ASPIRIN PO SCH ×2 (08:08→10:38)
[2016-08-22] MEDS: HCTZ PO SCH ×2 (08:09→10:39)
--- NOTE | 2016-08-22 08:55 | Progress Note ---
Assessment and Plan S/P IM nail right tibia change in mental status r/o CVA continue observation, awaiting MRI scan brain discharge planning underway Subjective Date of service: 08/22/16 Interval history: change in mental status more confused now than before surgery Objective Vital signs: Vital Signs - 12hr 08/21/16 08/22/16 08/22/16 22:00 00:00 04:00 Temperature 98.3 F 98.3 F Pulse Rate [ 83 89 Right Brachial] Respiratory 18 18 Rate Blood Pressure 131/61 127/62 [Right Arm] O2 Sat by Pulse 98 99 93 Oximetry 08/22/16 08/22/16 04:40 07:00 Temperature 98.8 F Pulse Rate [ 83 Right Brachial] Respiratory 24 Rate Blood Pressure 143/75 [Right Arm] O2 Sat by Pulse 98 96 Oximetry Narrative Exam: post op dressing intact, incision clean and dry - Labs CBC & BMP: 08/22/16 03:35 08/22/16 03:35 Labs: Abnormal lab results 08/21/16 08/21/16 08/22/16 Range/Units 14:47 22:39 03:35 RBC 2.33 L (3.65-5.03) M/mm3 Hgb 7.5 L (10.1-14.3) gm/dl Hct 22.4 L (30.3-42.9) % [place] % (Auto) 12.1 H (0.0-7.3) % Eos % (Auto) 4.6 H (0.0-4.3) % Lymph # 0.7 L (1.2-5.4) K/mm3 Sodium 135 L (137-145) mmol/L Potassium 3.5 L (3.6-5.0) mmol/L Chloride 97.3 L (98-107) mmol/L BUN 6 L (7-17) mg/dL Creatinine 0.5 L (0.7-1.2) mg/dL Glucose 128 H (65-100) mg/dL Calcium 7.6 L (8.4-10.2) mg/dL Iron 30 L (37-170) ug/dL 08/22/16 Range/Units 03:35 RBC (3.65-5.03) M/mm3 Hgb (10.1-14.3) gm/dl Hct (30.3-42.9) % [place] % (Auto) (0.0-7.3) % Eos % (Auto) (0.0-4.3) % Lymph # (1.2-5.4) K/mm3 Sodium 133 L (137-145) mmol/L Potassium 3.4 L (3.6-5.0) mmol/L Chloride 95.7 L (98-107) mmol/L BUN 4 L (7-17) mg/dL Creatinine 0.4 L (0.7-1.2) mg/dL Glucose 108 H (65-100) mg/dL Calcium 7.5 L (8.4-10.2) mg/dL Iron (37-170) ug/dL
[2016-08-22] MEDS: LEVAQUIN 750MG/150ML 750 MG/150 ML BAG IV SCH (10:32)
[2016-08-22] MEDS: K-DUR PO SCH (10:32)
[2016-08-22] MEDS: DITROPAN PO SCH ×2 (10:39→21:29)
--- NOTE | 2016-08-22 15:32 | Progress Note ---
Assessment and Plan 86 YO Female with HTN, Vertigo, Chron's disease presents to ED for evaluation. Pt states that she tripped and fell while walking. Pt stated that she was unable to bear weight on her right foot after the fall. X-rays from the emergency room showed a right displaced tib-fib fracture as well as evidence of osteoporosis. s/p surgery on 08/20/16, now developed slurred speech and drowsiness following surgery. --possible CVA CT head negative MRI could not be done, will repeat CT head tomorrow cont on aspirin and statin neuro consult if repeat CT positive --UTI placed on levaquin, follow urine CX --Dementia Fall precautions, supportive care, --Fracture of lower leg, closed Ortho consulted, s/p surgery 08/20/16 PT recommended ZHANNA --HTN stable with HCTZ --Anemia will monitor H and H anemia work up --Hypokalemia replace with po KCL --DVT prophylaxis lovenox Subjective Date of service: 08/22/16 Interval history: Patient seen and examined. Medical records and medication list reviewed. Discussed plan of care at bedside with her daughter. Patient appears to be more alert than yesterday, CT head was negative, does not have any acute focal weakness MRI could not be done yesterday as pt was not cooperative even with a dose of ativan Objective - Exam Narrative Exam: General appearance: Present: elderly WF appears lathergic - EENT Eyes: Present: PERRL ENT: clear oral mucosa - Neck Neck: Present: supple, normal ROM - Respiratory Respiratory effort: normal Respiratory: bilateral: CTA - Cardiovascular Heart Sounds: Present: S1 & S2. Absent: rub, click - Extremities Extremities: pulses symmetrical, No edema Peripheral Pulses: within normal limits - Abdominal General gastrointestinal: Present: soft, non-tender, non-distended, normal bowel sounds Female genitourinary: Present: normal - Integumentary Integumentary: Present: clear, warm, dry - Musculoskeletal Musculoskeletal: other (RLE surgical dressing in place. ) - Psychiatric Psychiatric: unable to assess - Neurologic Neurologic: moves all extremities - Constitutional Vitals: Vital Signs - 12hr 08/22/16 08/22/16 08/22/16 04:00 04:40 07:00 Temperature 98.3 F 98.8 F Pulse Rate [ 89 83 Right Brachial] Respiratory 18 24 Rate Blood Pressure 127/62 143/75 [Right Arm] O2 Sat by Pulse 93 98 96 Oximetry 08/22/16 11:09 Temperature Pulse Rate [ Right Brachial] Respiratory Rate Blood Pressure [Right Arm] O2 Sat by Pulse 98 Oximetry - Labs CBC & Chem 7: 08/22/16 03:35 08/22/16 03:35 Labs: Abnormal lab results 08/21/16 08/22/16 08/22/16 Range/Units 22:39 03:35 03:35 RBC 2.33 L (3.65-5.03) M/mm3 Hgb 7.5 L (10.1-14.3) gm/dl Hct 22.4 L (30.3-42.9) % [place] % (Auto) 12.1 H (0.0-7.3) % Eos % (Auto) 4.6 H (0.0-4.3) % Lymph # 0.7 L (1.2-5.4) K/mm3 Sodium 133 L (137-145) mmol/L Potassium 3.4 L (3.6-5.0) mmol/L Chloride 95.7 L (98-107) mmol/L BUN 4 L (7-17) mg/dL Creatinine 0.4 L (0.7-1.2) mg/dL Glucose 108 H (65-100) mg/dL Calcium 7.5 L (8.4-10.2) mg/dL Iron 30 L (37-170) ug/dL
[2016-08-22] MEDS: SENOKOT S PO SCH (21:30)
[2016-08-23 06:59] LABS: Basophils % (Auto) 0.3 % (0.0-1.8); Eosinophils % (Auto) 4.8 % (0.0-4.3); Hematocrit 24.9 % (30.3-42.9); Hemoglobin 8.2 gm/dl (10.1-14.3); Mean Corpuscular HGB Conc 33 % (30-34); Mean Corpuscular Hemoglobin 32 pg (28-32); Mean Corpuscular Volume 96 fl (79-97); Platelet Count 193 K/mm3 (140-440); Red Cell Distribution Width 14.4 % (13.2-15.2); White Blood Count 5.2 K/mm3 (4.5-11.0)
[2016-08-23 07:11] LABS: Anion Gap 15 mmol/L; Blood Urea Nitrogen 5 mg/dL (7-17); Calcium 8.1 mg/dL (8.4-10.2); Carbon Dioxide 24 mmol/L (22-30); Chloride 95.5 mmol/L (98-107); Glucose 107 mg/dL (65-100); Potassium 3.6 mmol/L (3.6-5.0); Sodium 131 mmol/L (137-145)
--- NOTE | 2016-08-23 08:45 | Cat Scan Report ---
CT HEAD WITHOUT CONTRAST: HISTORY: Stroke. The ischemic infarct in the left frontal lobe is evolving since 08/21/16 CT head. There is a new area of diminished attenuation in the left frontal lobe measuring up to 5.3 x 3.3 cm axial plane. There is no evidence for mass effect or hemorrhagic transformation. Diffuse cortical volume loss and chronic white matter changes are again noted and appropriate for this persons age. Chronic cortical infarct in the right posterior frontal lobe is again noted measuring 2.7 cm. Chronic lacunar infarct in the left caudate nucleus is again noted. Ventricular size is stable. The basal cisterns are clear. The calvarium is intact. The sinuses and mastoid air cells are well-aerated. 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 No evidence for hemorrhagic transformation or significant mass effect.
[2016-08-23] MEDS: ASPIRIN PO SCH (09:59)
[2016-08-23] MEDS: AZULFIDINE PO SCH ×2 (09:59→22:20)
[2016-08-23] MEDS: DITROPAN PO SCH ×2 (09:59→22:03)
[2016-08-23] MEDS: K-DUR PO SCH (10:00)
[2016-08-23] MEDS: LEVAQUIN PO SCH (10:00)
[2016-08-23] MEDS: LOVENOX SUB-Q SCH (10:00)
[2016-08-23] MEDS: HCTZ PO SCH (10:00)
--- NOTE | 2016-08-23 12:02 | Consultation ---
History of Present Illness Consult date: 08/23/16 Requesting physician: GERARDO HERMAN Reason for Consult: stroke? Chief complaint: AMS limits direct hx History of present illness: 86 YO F Hx ASA 81mg QDay use p/w GLF c/b R Tib/Fib Fx s/p OR on 4/15 AM. Post op she was noted to have alteration in speech w/ nonsensical verbalizations that were slurred. Sx are constant. There are no clear aggravating, relieving or temporal factors. Severity was enough to cause inability to effectively communicate. Pt/daughter not clear on R sided weakness. Past History Past Medical History: hypertension Past Surgical History: appendectomy, total hip replacement Social history: . denies: smoking, alcohol abuse, prescription drug abuse Family history: hypertension Medications and Allergies Allergies Allergy/AdvReac Type Severity Reaction Status Date / Time No Known Allergies Allergy Verified 08/19/16 06:32 Home Medications Medication Instructions Recorded Confirmed Last Taken Type Aspirin [Aspirin BABY CHEW TAB] 81 mg PO QDAY 08/19/16 08/19/16 08/18/16 History HYDROcodone/APAP 7.5-325 [Barton 1 each PO Q8HR PRN 08/19/16 08/19/16 Unknown History 7.5/325] Hydrochlorothiazide [HCTZ] 25 mg PO QDAY 08/19/16 08/19/16 08/18/16 History Meclizine [Antivert] 25 mg PO QID PRN 08/19/16 08/19/16 Unknown History Oxybutynin [Ditropan] 5 mg PO BID 08/19/16 08/19/16 08/18/16 History carBAMazepine [Carbamazepine ER] 0.5 tab PO TID 08/19/16 08/19/16 08/18/16 History sulfaSALAzine [Azulfidine] 500 mg PO Q12HR 08/19/16 08/19/16 08/18/16 History Active Meds: Active Medications Acetaminophen (Tylenol) 650 mg PO Q4H PRN PRN Reason: Pain MILD(1-3)/Fever >100.5/GARCIA Last Admin: 08/21/16 13:33 Dose: 650 mg Acetaminophen/Hydrocodone Bitart (Barton 5/325) 1 each PO Q6H PRN PRN Reason: Pain, Moderate (4-6) Last Admin: 08/19/16 23:35 Dose: 1 each Aspirin (Aspirin) 325 mg PO QDAY [facility] Last Admin: 08/23/16 09:59 Dose: 325 mg Atorvastatin Calcium (Lipitor) 40 mg PO QHS [facility] Last Admin: 08/22/16 21:29 Dose: 40 mg Bisacodyl (Dulcolax) 10 mg NV QDAY PRN PRN Reason: Constipation unrelieved by MOM Carbamazepine (Tegretol) 100 mg PO TID [facility] Last Admin: 08/23/16 10:00 Dose: 100 mg Enoxaparin Sodium (Lovenox) 40 mg SUB-Q QDAY [facility] Last Admin: 08/23/16 10:00 Dose: 40 mg Hydrochlorothiazide (Hctz) 25 mg PO QDAY [facility] Last Admin: 08/23/16 10:00 Dose: 25 mg Hydromorphone HCl (Dilaudid) 0.5 mg IV Q6H PRN PRN Reason: Pain , Severe (7-10) Last Admin: 08/20/16 20:06 Dose: 0.5 mg Levofloxacin (Levaquin) 250 mg PO DAILY [facility] Last Admin: 08/23/16 10:00 Dose: 250 mg Magnesium Hydroxide (Milk Of Magnesia) 30 ml PO Q4H PRN PRN Reason: Constipation Meclizine HCl (Antivert) 25 mg PO QID PRN PRN Reason: Vertigo Ondansetron HCl (Zofran) 4 mg IV Q8H PRN PRN Reason: N/V unrelieved by Reglan Last Admin: 08/20/16 06:19 Dose: 4 mg Oxybutynin Chloride (Ditropan) 5 mg PO BID [facility] Last Admin: 08/23/16 09:59 Dose: 5 mg Potassium Chloride (K-Dur) 20 meq PO QDAY [facility] Last Admin: 08/23/16 10:00 Dose: 20 meq Senna/Docusate Sodium (Senokot S) 1 tab PO QHS [facility] Last Admin: 08/22/16 21:30 Dose: 1 tab Sulfasalazine (Azulfidine) 500 mg PO Q12HR [facility] Last Admin: 08/23/16 09:59 Dose: 500 mg Review of Systems ROS unobtainable: due to mental status Physical Examination - Vital Signs Vital Signs: Vital Signs Pulse Resp 71 15 08/19/16 06:15 08/19/16 06:15 - Constitutional General appearance: uncomfortable, acutely ill - EENT EENT: Present: ATNC, PERRL, mucous membranes dry, hearing intact, vision intact - Respiratory Respiratory: Present: chest non-tender, lungs clear, no respiratory distress - Cardiovascular Cardiovascular: Present: regular rate Extremities: Present: no peripheral edema bilatateraly, no clubbing, cyanosis, no ischemia or petechiae - Gastrointestinal Gastrointestinal: Present: normoactive bowel sounds, soft, non-distended - Integumentary Integumentary: Present: normal - Neurologic Cranial nerve examination: PERRL, EOMI, VFF, face symmetric, tongue midline, intact, intact shoulder shrug, intact cough reflex, Intact Vestibulo-ocular r, intact corneal reflex, normal palatal elevation Speech examination: motor aphasia, sensory aphasia Sensorimotor examination: pronator drift (on R), hemiparesis (on R) Motor examination - right side: 4/5: biceps, triceps, wrist flexion, wrist extension, 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, hip flexors, knee extensors, dorsiflexion, toe extension (EHL) , plantarflexion Motor examination - left side: 5/5: biceps, triceps, wrist flexion, wrist extension, 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, hip flexors, knee extensors, dorsiflexion, toe extension (EHL) , plantarflexion Detailed sensory examination: intact, light touch, temperature Reflex and gait examination: Babinski's sign (on R) Reflexes: 1+: ankle (on R), 3+: bicep, knee, tricep - Musculoskeletal Musculoskeletal: Present: no fluid collection, normal range of motion, other ( RLE in soft cast) - Psychiatric Psychiatric: Present: mood/affect appropriate, cooperative Results - Laboratory Findings CBC and BMP: 08/23/16 06:30 08/23/16 06:30 Abnormal Lab Findings: Abnormal Labs 08/19/16 08/21/16 08/21/16 22:55 00:01 00:23 RBC 2.50 L Hgb 8.2 L Hct 24.5 L D MCV 98 H MCH 33 H [place] % (Auto) Eos % (Auto) Lymph # Sodium Potassium Chloride BUN Creatinine Glucose POC Glucose 119 H Calcium Iron Urine WBC (Auto) 135.0 H 08/21/16 08/21/16 08/22/16 14:47 22:39 03:35 RBC 2.33 L Hgb 7.5 L Hct 22.4 L MCV MCH [place] % (Auto) 12.1 H Eos % (Auto) 4.6 H Lymph # 0.7 L Sodium 135 L Potassium 3.5 L Chloride 97.3 L BUN 6 L Creatinine 0.5 L Glucose 128 H POC Glucose Calcium 7.6 L Iron 30 L Urine WBC (Auto) 08/22/16 08/23/16 08/23/16 03:35 06:30 06:30 RBC 2.60 L Hgb 8.2 L Hct 24.9 L MCV MCH [place] % (Auto) 12.4 H Eos % (Auto) 4.8 H Lymph # 1.0 L Sodium 133 L 131 L Potassium 3.4 L Chloride 95.7 L 95.5 L BUN 4 L 5 L Creatinine 0.4 L 0.5 L Glucose 108 H 107 H POC Glucose Calcium 7.5 L 8.1 L Iron Urine WBC (Auto) Assessment and Plan 86 YO F Hx ASA 81mg QDay use p/w GLF c/b R Tib/Fib Fx s/p OR on 415 AM c/b 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 Pt with severe claustrophobia limiting MRI Brain. Plan and Recommendation: 1. No indication for pharmacologic thrombolysis with IV tPA or mechanical thrombectomy due to last known normal > 6 hrs from presentation. Current NIHSS 7. 2. Telemetry bed w/ Q4 hour neuro checks 3. Vascular Imaging: Bilateral Carotid Duplex U/S 4. TTE w/ bubble to eval for possible cardiac source of embolism 5. 30 day ambulatory Tele monitor ? pAFib 6. Serum Labs: LDL 7. Autoregulate SBP to goal 120-160 as pt is outside permissive HTN window. 8. Secondary stroke prevention: ASA 325mg Daily & upgrade to full dose statin therapy (Crestor 20mg or 40mg OR Lipitor 40mg or 80mg Daily OR Zocor 40mg QDay) for goal LDL < 70. No firm indication at this point for therapeutic anticoagulation as pt has not had AFib captured on telemetry monitoring. 9. F/E/N: isotonic IVF prn, prn replete, bedside speech/swallow eval prior to PO intake. 10. DVT Prophylaxis 11. Stroke education, PT/OT/Speech Therapy consults, CM evaluation 12. For any changes in neurologic status, pls obtain STAT CTH w/o contrast and call neurology
--- NOTE | 2016-08-23 14:30 | Progress Note ---
Assessment and Plan 86 YO Female with HTN, Vertigo, Chron's disease presents to ED for evaluation. Pt states that she tripped and fell while walking. Pt stated that she was unable to bear weight on her right foot after the fall. X-rays from the emergency room showed a right displaced tib-fib fracture as well as evidence of osteoporosis. s/p surgery on 08/20/16, now developed slurred speech and drowsiness following surgery. --left frontal acute CVA initial CT head was negative MRI could not be done, repeat CT showed acute CVA cont on aspirin and statin neuro consulted and recommended carotid doppler --UTI placed on levaquin, --Dementia Fall precautions, supportive care, --Fracture of lower leg, closed Ortho consulted, s/p surgery 08/20/16 PT recommended ZHANNA --HTN will d/c HCTZ as she is having hyponatremia will place on coreg --Anemia, iron deficiency will cont to monitor H and H replace iron --Hypokalemia replaced with po KCL --DVT prophylaxis lovenox disposition: ZHANNA when gets accepted and BP stable Subjective Date of service: 08/23/16 Interval history: Patient seen and examined. Medical records and medication list reviewed. Discussed plan of care at bedside with her daughter. Patient appears to be more alert, repeat CT head showed lefr frontal ischenic CVA, does not have any acute focal weakness MRI could not be done as pt was not cooperative even with a dose of ativan Objective - Exam Narrative Exam: General appearance: Present: elderly WF appears lathergic - EENT Eyes: Present: PERRL ENT: clear oral mucosa - Neck Neck: Present: supple, normal ROM - Respiratory Respiratory effort: normal Respiratory: bilateral: CTA - Cardiovascular Heart Sounds: Present: S1 & S2. Absent: rub, click - Extremities Extremities: pulses symmetrical, No edema Peripheral Pulses: within normal limits - Abdominal General gastrointestinal: Present: soft, non-tender, non-distended, normal bowel sounds Female genitourinary: Present: normal - Integumentary Integumentary: Present: clear, warm, dry - Musculoskeletal Musculoskeletal: other (RLE surgical dressing in place. ) expressive aphasia - Psychiatric Psychiatric: unable to assess - Neurologic Neurologic: moves all extremities - Constitutional Vitals: Vital Signs - 12hr 08/23/16 08/23/16 08/23/16 04:00 09:01 10:05 Temperature 98.3 F Pulse Rate [ 74 Right Brachial] Respiratory 20 Rate Blood Pressure 153/80 [Right Arm] O2 Sat by Pulse 98 93 95 Oximetry - Labs CBC & Chem 7: 08/23/16 06:30 08/23/16 06:30 Labs: Abnormal lab results 08/23/16 08/23/16 Range/Units 06:30 06:30 RBC 2.60 L (3.65-5.03) M/mm3 Hgb 8.2 L (10.1-14.3) gm/dl Hct 24.9 L (30.3-42.9) % [place] % (Auto) 12.4 H (0.0-7.3) % Eos % (Auto) 4.8 H (0.0-4.3) % Lymph # 1.0 L (1.2-5.4) K/mm3 Sodium 131 L (137-145) mmol/L Chloride 95.5 L (98-107) mmol/L BUN 5 L (7-17) mg/dL Creatinine 0.5 L (0.7-1.2) mg/dL Glucose 107 H (65-100) mg/dL Calcium 8.1 L (8.4-10.2) mg/dL
[2016-08-23] MEDS ORDERED: LOPRESSOR PO SCH (22:00)
[2016-08-23] MEDS: SENOKOT S PO SCH (22:03)
[2016-08-23] MEDS: FEOSOL PO SCH (22:05)
[2016-08-24 07:03] LABS: Anion Gap 16 mmol/L; Blood Urea Nitrogen 7 mg/dL (7-17); Calcium 8.1 mg/dL (8.4-10.2); Carbon Dioxide 25 mmol/L (22-30); Chloride 93.5 mmol/L (98-107); Glucose 100 mg/dL (65-100); Potassium 3.8 mmol/L (3.6-5.0); Sodium 131 mmol/L (137-145)
--- NOTE | 2016-08-24 09:26 | Discharge Summary ---
Providers - Providers Date of Admission: 08/19/16 19:16 Date of discharge: 08/24/16 Attending physician: LUI PANDEY 08/20/16 12:57 Physical Therapy Evaluation and Treat [CONS] Routine Comment: Reason For Exam: post op evaluation Weight bearing status?: Partial wt bearing Assistive devices?: Yes If so list: Walker 08/21/16 10:43 Speech Therapy Evaluation and Treat [CONS] Routine Reason For Exam: slurred speech 08/23/16 07:47 Consult to Physician [CONS] Routine Consulting Provider: MARY ELLEN AGUILAR Reason For Exam: possible CVA Place consult to:: neurology Notified:: yes Phone number called:: [phone] Was contact made?: Yes If yes, spoke with:: left message on voicemail Time called:: 09:00 Primary care physician: DAMAGE APPRAISER Hospitalization Condition: Stable Hospital course: 86 YO Female with HTN, Vertigo, Chron's disease presents to ED for evaluation. Pt states that she tripped and fell while walking. Pt stated that she was unable to bear weight on her right foot after the fall. X-rays from the emergency room showed a right displaced tib-fib fracture as well as evidence of osteoporosis. s/p surgery on 08/20/16, now developed slurred speech and drowsiness following surgery. Discharge Diagnosis and management: --left frontal acute CVA Initial CT head was negative MRI could not be done, repeat CT showed acute CVA cont on aspirin and statin neuro consulted and recommended carotid doppler 2D echo showed 35 to 40% --New onset CHF will add lisinopril she is already on beta ventura --UTI placed on levaquin, --Dementia Fall precautions, supportive care, --Fracture of lower leg, closed Ortho consulted, s/p surgery 08/20/16 PT recommended ZHANNA --HTN d/sara HCTZ as she was having hyponatremia placed on metoprolol and lisinopril --Anemia, iron deficiency will cont to monitor H and H replace iron --Hypokalemia replaced with po KCL Disposition: DC/TX INPT REHAB FACILITY Time spent for discharge: 32 minutes Core Measure Documentation - Palliative Care Palliative Care/ Comfort Measures: Not Applicable - Core Measures Any of the following diagnoses?: heart failure, stroke - Heart Failure Discharge Requirements PACHECO/ARB for LVSD if EF <40%: Yes Beta ventura at discharge: Yes - Stroke Discharge Requirements Statin for LDL = or >70 mg/dl on DC: Yes Anticoag for atrial fib/atrial flutter: Not Applicable Antithrombotic for ischemic stroke: Yes Exam - Physical Exam Narrative exam: General appearance: Present: elderly WF appears lathergic - EENT Eyes: Present: PERRL ENT: clear oral mucosa - Neck Neck: Present: supple, normal ROM - Respiratory Respiratory effort: normal Respiratory: bilateral: CTA - Cardiovascular Heart Sounds: Present: S1 & S2. Absent: rub, click - Extremities Extremities: pulses symmetrical, No edema Peripheral Pulses: within normal limits - Abdominal General gastrointestinal: Present: soft, non-tender, non-distended, normal bowel sounds Female genitourinary: Present: normal - Integumentary Integumentary: Present: clear, warm, dry - Musculoskeletal Musculoskeletal: other (RLE surgical dressing in place. ) expressive aphasia - Psychiatric Psychiatric: unable to assess - Neurologic Neurologic: moves all extremities - Constitutional Vitals: Temp Pulse Resp BP Pulse Ox 98.8 F 83 18 151/78 96 08/24/16 08:00 08/24/16 08:00 08/24/16 08:00 08/24/16 08:00 08/24/16 08:00 Plan Activity: fall precautions Weight Bearing Status: Non-Weight Bearing Diet: low cholesterol, low salt Follow up with: PRIMARY CARE, [Primary Care Provider] - 3-5 Days Prescriptions: AtorvaSTATin [Lipitor] 40 mg PO QHS #30 tablet Ferrous Sulfate [Feosol 325 MG tab] 325 mg PO BID #60 tablet Levofloxacin [Levaquin TAB] 250 mg PO DAILY #2 tablet Lisinopril [Zestril TAB] 5 mg PO QDAY #30 tablet Metoprolol [Lopressor TAB] 50 mg PO BID #60 tablet
[2016-08-24] MEDS ORDERED: LOPRESSOR PO SCH ×2 (10:00→10:30)
[2016-08-24] MEDS: ASPIRIN PO SCH (10:32)
[2016-08-24] MEDS: DITROPAN PO SCH (10:32)
[2016-08-24] MEDS: FEOSOL PO SCH (10:32)
[2016-08-24] MEDS: K-DUR PO SCH (10:32)
[2016-08-24] MEDS: LEVAQUIN PO SCH (10:33)
[2016-08-24] MEDS: LOVENOX SUB-Q SCH (10:33)
[2016-08-24] MEDS: AZULFIDINE PO SCH (15:10)
[2016-08-24 15:45] VITALS: BP 116/61
--- NOTE | 2016-08-29 07:34 | Vascular Lab Report ---
CAROTID DUPLEX STUDY: RIGHT PSVEDV CCA PROX:109 8 CCA DIST: 7414 ICA PROX: 6910 ICA MID: 8218 ICA DIST: 9818 ECA: 107 8 VERT: 60 14 LEFT PSVEDV CCA PROX: 9814 CCA DIST: 7512 ICA PROX: 7114 ICA MID: 7713 ICA DIST: 9718 ECA: 66 8 VERT: 61 18 REASON FOR EXAM: Stroke. COMMENTS ON THE RIGHT: Doppler frequency analysis is consistent with 16 to 49 percent diameter reduction of the internal carotid artery. Minimal amount of plaque is seen. The common carotid artery is patent. The external carotid artery is patent. The vertebral artery has antegrade flow. COMMENTS ON THE LEFT: Doppler frequency analysis is consistent with 16 to 49 percent diameter reduction of the internal carotid artery. Minimal amount of plaque is seen. The common carotid artery is patent. The external carotid artery is patent. The vertebral artery has antegrade flow. IMPRESSION: Less than 50% diameter reduction in the internal carotid arteries bilaterally. Consider repeat carotid artery duplex in 12 months.
== END 2016-08-24 19:15 | DRG 492 ==
LOC: ED 05:56 → 2B-SURG 19:16
PROVIDERS: ADMIT Internal Medicine; ATTEND Internal Medicine
PROC: 0QSG34Z Reposition Right Tibia with Internal Fixation Device, Percutaneous Approach (ICD-10-PCS; principal; 2016-08-20)
DX: S82.451A Displaced comminuted fracture of shaft of right fibula, initial encounter for closed fracture (principal); I63.9 Cerebral infarction, unspecified; N39.0 Urinary tract infection, site not specified; K50.90 Crohn's disease, unspecified, without complications; S82.391A Other fracture of lower end of right tibia, initial encounter for closed fracture; F03.90 Unspecified dementia, unspecified severity, without behavioral disturbance, psychotic disturbance, mood disturbance, and anxiety; I10 Essential (primary) hypertension; D64.9 Anemia, unspecified; E87.6 Hypokalemia; Z96.649 Presence of unspecified artificial hip joint; W01.0XXA Fall on same level from slipping, tripping and stumbling without subsequent striking against object, initial encounter; M81.0 Age-related osteoporosis without current pathological fracture; Z87.891 Personal history of nicotine dependence; Z82.49 Family history of ischemic heart disease and other diseases of the circulatory system; Y93.89 Activity, other specified; Y92.89 Other specified places as the place of occurrence of the external cause; Y99.8 Other external cause status
CPT/HCPCS: 36415; 70450; 71010; 80048; 80053; 81001; 82140; 82607; 82728; 82747; 82805; 82962; 83550; 83721; 84466; 84484; 85025; 85027; 85610; 85730; 86850; 86900; 86901; 87040; 87086; 93005; 93010; 93306; 93880; 94760; 96365; 96366; 96375; 96376; A9270-GY; C1713; C1769; G8978-GP; G8979-GP; G9159-GN; G9160-GN; J1170; J1650; J1885; J1956; J2060; J2250; J2270; J2405; J2704; J3370; J7030; J7050

== ENCOUNTER 2017-07-12 10:36 | Outpatient (CLI) | payer MEDICARE ==
--- NOTE | 2017-07-12 21:46 | XRay Report ---
FINAL REPORT PROCEDURE: XR SHOULDER 2+V LT TECHNIQUE: Left shoulder radiographs including AP views in internal and external rotation and abduction. CPT 50012 HISTORY: PAIN IN LEFT SHOULDER COMPARISON: No prior studies are available for comparison. FINDINGS: Fracture (s) and/or Dislocation(s): None . 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 Soft tissues: Normal . Bone mineralization: Normal . Foreign bodies: None . Incidental calcified left hilar lymph nodes are noted. IMPRESSION: There is no fracture or malalignment. 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
== END 2017-07-12 10:37 | disposition home or self-care (01) ==
LOC: XRAY 10:36
PROVIDERS: ATTEND Student in an Organized Health Care Education/Training Program
DX: M19.012 Primary osteoarthritis, left shoulder (principal)

== ENCOUNTER 2018-10-10 09:38 | Outpatient (CLI) | payer MEDICARE ==
[2018-10-10] MEDS ORDERED: XYLOCAINE TOPICAL 4% TP ONE (10:00)
[2018-10-10] MEDS ORDERED: AD OINTMENT TP SCH (10:00)
== END 2018-10-10 09:39 | disposition home or self-care (01) ==
LOC: WOUND 09:38
PROVIDERS: ATTEND Surgery
DX: I70.243 Atherosclerosis of native arteries of left leg with ulceration of ankle (principal); L97.322 Non-pressure chronic ulcer of left ankle with fat layer exposed; F01.50 Vascular dementia, unspecified severity, without behavioral disturbance, psychotic disturbance, mood disturbance, and anxiety; Z86.73 Personal history of transient ischemic attack (TIA), and cerebral infarction without residual deficits; Z96.649 Presence of unspecified artificial hip joint
CPT/HCPCS: 11042; G0463; 99205; A6250

== ENCOUNTER 2018-10-17 13:29 | Outpatient (CLI) | payer MEDICARE ==
--- NOTE | 2018-10-17 21:28 | Vascular Lab Report ---
PROCEDURE: VL ARTERIAL DUPLEX LE LT TECHNIQUE: RIGHT lower extremity Doppler arterial waveforms, segmental limb pressures, and ankle-bra chial indices were attempted in the common and superficial femoral, popliteal, posterior and anterior tibial/dorsalis pedis arteries. HISTORY: NONPRESSURE CHRONIC ULCER OF LEFT ANKLE WITH FAT LAYER EXPOSED COMPARISONS: None . FINDINGS: Waveforms: Biphasic . Segmental pressure gradients: There is elevated velocity in the popliteal artery and posterior tibia l and anterior tibial arteries suggesting focal stenosis of the segments. There is no occlusion. . Brachial pressures: Not measured . LEFT Ankle/brachial index ([place]): Not measured IMPRESSION: Mild arterial insufficiency in the popliteal and infrapopliteal segments. There is no oc clusion.. This document is electronically signed by Hilton Barney MD., October 17 2018 09:27:03 PM ET
== END 2018-10-17 13:30 | disposition home or self-care (01) ==
LOC: VAS 13:29
PROVIDERS: ATTEND Surgery
DX: L97.322 Non-pressure chronic ulcer of left ankle with fat layer exposed (principal); I77.1 Stricture of artery; I10 Essential (primary) hypertension

== ENCOUNTER 2018-10-18 08:36 | Outpatient (CLI) | payer MEDICARE ==
[2018-10-18 09:17] LABS: BUN/Creatinine Ratio 29; Blood Urea Nitrogen 20 mg/dL (7-17); Calcium 9.2 mg/dL (8.4-10.2); Hemolysis Index 0
== END 2018-10-18 08:37 | disposition home or self-care (01) ==
LOC: LAB 08:36
PROVIDERS: ATTEND Surgery
DX: L97.322 Non-pressure chronic ulcer of left ankle with fat layer exposed (principal); I10 Essential (primary) hypertension
CPT/HCPCS: 36415; 80048

== ENCOUNTER 2018-10-18 10:02 | Outpatient (CLI) | payer MEDICARE ==
[2018-10-18] MEDS ORDERED: XYLOCAINE TOPICAL 4% TP ONE (12:24)
== END 2018-10-18 10:03 | disposition home or self-care (01) ==
LOC: WOUND 10:02
PROVIDERS: ATTEND Surgery
DX: I70.243 Atherosclerosis of native arteries of left leg with ulceration of ankle (principal); L97.322 Non-pressure chronic ulcer of left ankle with fat layer exposed; F01.50 Vascular dementia, unspecified severity, without behavioral disturbance, psychotic disturbance, mood disturbance, and anxiety; Z86.73 Personal history of transient ischemic attack (TIA), and cerebral infarction without residual deficits; Z96.649 Presence of unspecified artificial hip joint
CPT/HCPCS: 36415; 80048

== ENCOUNTER 2018-10-25 10:41 | Outpatient (CLI) | payer MEDICARE ==
[2018-10-25] MEDS ORDERED: XYLOCAINE TOPICAL 4% TP ONE (11:03)
[2018-10-25] MEDS ORDERED: SILVER NITRATE TP ONE (11:04)
== END 2018-10-25 10:42 | disposition home or self-care (01) ==
LOC: WOUND 10:41
PROVIDERS: ATTEND Surgery
DX: I70.243 Atherosclerosis of native arteries of left leg with ulceration of ankle (principal); L97.322 Non-pressure chronic ulcer of left ankle with fat layer exposed; F01.50 Vascular dementia, unspecified severity, without behavioral disturbance, psychotic disturbance, mood disturbance, and anxiety; Z86.73 Personal history of transient ischemic attack (TIA), and cerebral infarction without residual deficits; Z96.649 Presence of unspecified artificial hip joint

== ENCOUNTER 2018-11-02 10:19 | Outpatient (CLI) | payer MEDICARE ==
[2018-11-02] MEDS ORDERED: SILVER NITRATE TP ONE (10:55)
[2018-11-02] MEDS ORDERED: XYLOCAINE TOPICAL 4% TP ONE (10:55)
== END 2018-11-02 10:20 | disposition home or self-care (01) ==
LOC: WOUND 10:19
PROVIDERS: ATTEND Surgery
DX: I70.243 Atherosclerosis of native arteries of left leg with ulceration of ankle (principal); L97.322 Non-pressure chronic ulcer of left ankle with fat layer exposed; L89.319 Pressure ulcer of right buttock, unspecified stage; F01.50 Vascular dementia, unspecified severity, without behavioral disturbance, psychotic disturbance, mood disturbance, and anxiety; Z86.73 Personal history of transient ischemic attack (TIA), and cerebral infarction without residual deficits; Z96.649 Presence of unspecified artificial hip joint

== ENCOUNTER 2018-11-09 10:23 | Outpatient (CLI) | payer MEDICARE ==
[2018-11-09] MEDS ORDERED: SILVER NITRATE TP ONE (10:34)
[2018-11-09] MEDS ORDERED: XYLOCAINE TOPICAL 4% TP ONE (10:34)
== END 2018-11-09 10:24 | disposition home or self-care (01) ==
LOC: WOUND 10:23
PROVIDERS: ATTEND Surgery
DX: I70.243 Atherosclerosis of native arteries of left leg with ulceration of ankle (principal); L97.322 Non-pressure chronic ulcer of left ankle with fat layer exposed; L89.319 Pressure ulcer of right buttock, unspecified stage; F01.50 Vascular dementia, unspecified severity, without behavioral disturbance, psychotic disturbance, mood disturbance, and anxiety; Z86.73 Personal history of transient ischemic attack (TIA), and cerebral infarction without residual deficits; Z96.649 Presence of unspecified artificial hip joint

== ENCOUNTER 2018-11-16 10:28 | Outpatient (CLI) | payer MEDICARE ==
[2018-11-16] MEDS ORDERED: AD OINTMENT TP PRN (11:00)
[2018-11-16] MEDS ORDERED: XYLOCAINE TOPICAL 4% TP ONE (11:00)
== END 2018-11-16 10:29 | disposition home or self-care (01) ==
LOC: WOUND 10:28
PROVIDERS: ATTEND Surgery
DX: I70.243 Atherosclerosis of native arteries of left leg with ulceration of ankle (principal); L97.322 Non-pressure chronic ulcer of left ankle with fat layer exposed; L89.319 Pressure ulcer of right buttock, unspecified stage; F01.50 Vascular dementia, unspecified severity, without behavioral disturbance, psychotic disturbance, mood disturbance, and anxiety; Z86.73 Personal history of transient ischemic attack (TIA), and cerebral infarction without residual deficits; Z96.649 Presence of unspecified artificial hip joint
CPT/HCPCS: A6250

== ENCOUNTER 2018-11-23 10:25 | Outpatient (CLI) | payer MEDICARE ==
[2018-11-23] MEDS ORDERED: XYLOCAINE TOPICAL 4% TP ONE (11:00)
== END 2018-11-23 10:26 | disposition home or self-care (01) ==
LOC: WOUND 10:25
PROVIDERS: ATTEND Surgery
DX: I70.243 Atherosclerosis of native arteries of left leg with ulceration of ankle (principal); L97.322 Non-pressure chronic ulcer of left ankle with fat layer exposed; L89.319 Pressure ulcer of right buttock, unspecified stage; F01.50 Vascular dementia, unspecified severity, without behavioral disturbance, psychotic disturbance, mood disturbance, and anxiety; Z86.73 Personal history of transient ischemic attack (TIA), and cerebral infarction without residual deficits; Z96.649 Presence of unspecified artificial hip joint

== ENCOUNTER 2018-12-07 10:22 | Outpatient (CLI) | payer MEDICARE ==
[2018-12-07] MEDS ORDERED: SILVER NITRATE TP ONE (10:46)
[2018-12-07] MEDS ORDERED: XYLOCAINE TOPICAL 4% TP ONE (10:46)
== END 2018-12-07 10:23 | disposition home or self-care (01) ==
LOC: WOUND 10:22
PROVIDERS: ATTEND Surgery
DX: I70.243 Atherosclerosis of native arteries of left leg with ulceration of ankle (principal); L97.322 Non-pressure chronic ulcer of left ankle with fat layer exposed; L89.319 Pressure ulcer of right buttock, unspecified stage; F01.50 Vascular dementia, unspecified severity, without behavioral disturbance, psychotic disturbance, mood disturbance, and anxiety; Z86.73 Personal history of transient ischemic attack (TIA), and cerebral infarction without residual deficits; Z96.649 Presence of unspecified artificial hip joint

== ENCOUNTER 2018-12-14 10:26 | Outpatient (CLI) | payer MEDICARE ==
[2018-12-14] MEDS ORDERED: XYLOCAINE TOPICAL 4% TP ONE (11:00)
== END 2018-12-14 10:27 | disposition home or self-care (01) ==
LOC: WOUND 10:26
PROVIDERS: ATTEND Surgery
DX: I70.243 Atherosclerosis of native arteries of left leg with ulceration of ankle (principal); L97.322 Non-pressure chronic ulcer of left ankle with fat layer exposed; L89.319 Pressure ulcer of right buttock, unspecified stage; F01.50 Vascular dementia, unspecified severity, without behavioral disturbance, psychotic disturbance, mood disturbance, and anxiety; Z86.73 Personal history of transient ischemic attack (TIA), and cerebral infarction without residual deficits; Z96.649 Presence of unspecified artificial hip joint

== ENCOUNTER 2018-12-21 10:22 | Outpatient (CLI) | payer MEDICARE ==
[2018-12-21] MEDS ORDERED: AD OINTMENT TP PRN (10:34)
[2018-12-21] MEDS ORDERED: XYLOCAINE TOPICAL 4% TP ONE (10:34)
[2018-12-21] MEDS ORDERED: SILVER NITRATE TP ONE (10:34)
== END 2018-12-21 10:23 | disposition home or self-care (01) ==
LOC: WOUND 10:22
PROVIDERS: ATTEND Surgery
DX: I70.243 Atherosclerosis of native arteries of left leg with ulceration of ankle (principal); L97.325 Non-pressure chronic ulcer of left ankle with muscle involvement without evidence of necrosis; L89.313 Pressure ulcer of right buttock, stage 3; F01.50 Vascular dementia, unspecified severity, without behavioral disturbance, psychotic disturbance, mood disturbance, and anxiety; Z86.73 Personal history of transient ischemic attack (TIA), and cerebral infarction without residual deficits
CPT/HCPCS: A6250

== ENCOUNTER 2018-12-28 10:18 | Outpatient (CLI) | payer MEDICARE ==
[2018-12-28] MEDS ORDERED: SILVER NITRATE TP ONE (11:00)
[2018-12-28] MEDS ORDERED: XYLOCAINE TOPICAL 4% TP ONE (11:00)
== END 2018-12-28 10:19 | disposition home or self-care (01) ==
LOC: WOUND 10:18
PROVIDERS: ATTEND Surgery
DX: I70.243 Atherosclerosis of native arteries of left leg with ulceration of ankle (principal); L97.325 Non-pressure chronic ulcer of left ankle with muscle involvement without evidence of necrosis; L89.313 Pressure ulcer of right buttock, stage 3; F01.50 Vascular dementia, unspecified severity, without behavioral disturbance, psychotic disturbance, mood disturbance, and anxiety; Z86.73 Personal history of transient ischemic attack (TIA), and cerebral infarction without residual deficits

== ENCOUNTER 2019-01-18 10:25 | Outpatient (CLI) | payer MEDICARE ==
[2019-01-18] MEDS ORDERED: XYLOCAINE TOPICAL 4% TP ONE (11:00)
== END 2019-01-18 10:26 | disposition home or self-care (01) ==
LOC: WOUND 10:25
PROVIDERS: ATTEND Surgery
DX: I70.243 Atherosclerosis of native arteries of left leg with ulceration of ankle (principal); L97.325 Non-pressure chronic ulcer of left ankle with muscle involvement without evidence of necrosis; L89.313 Pressure ulcer of right buttock, stage 3; F01.50 Vascular dementia, unspecified severity, without behavioral disturbance, psychotic disturbance, mood disturbance, and anxiety; Z86.73 Personal history of transient ischemic attack (TIA), and cerebral infarction without residual deficits

== ENCOUNTER 2019-02-08 10:20 | Outpatient (CLI) | payer MEDICARE ==
[2019-02-08] MEDS ORDERED: LIDOCAINE (4%) 40 MG/ML TOPICAL SOLN 50 ML BOTTLE TP ONE (11:00)
== END 2019-02-08 10:21 | disposition home or self-care (01) ==
LOC: WOUND 10:20
PROVIDERS: ATTEND Surgery
DX: I70.243 Atherosclerosis of native arteries of left leg with ulceration of ankle (principal); L97.325 Non-pressure chronic ulcer of left ankle with muscle involvement without evidence of necrosis; L89.313 Pressure ulcer of right buttock, stage 3; I69.954 Hemiplegia and hemiparesis following unspecified cerebrovascular disease affecting left non-dominant side; F01.50 Vascular dementia, unspecified severity, without behavioral disturbance, psychotic disturbance, mood disturbance, and anxiety

== ENCOUNTER 2019-02-15 10:21 | Outpatient (CLI) | payer MEDICARE ==
[2019-02-15] MEDS ORDERED: LIDOCAINE (4%) 40 MG/ML TOPICAL SOLN 50 ML BOTTLE TP ONE (11:30)
== END 2019-02-15 10:22 | disposition home or self-care (01) ==
LOC: WOUND 10:21
PROVIDERS: ATTEND Surgery
DX: I70.243 Atherosclerosis of native arteries of left leg with ulceration of ankle (principal); L97.322 Non-pressure chronic ulcer of left ankle with fat layer exposed; I69.954 Hemiplegia and hemiparesis following unspecified cerebrovascular disease affecting left non-dominant side; F01.50 Vascular dementia, unspecified severity, without behavioral disturbance, psychotic disturbance, mood disturbance, and anxiety

== ENCOUNTER 2019-02-22 10:20 | Outpatient (CLI) | payer MEDICARE ==
[2019-02-22] MEDS ORDERED: XYLOCAINE TOPICAL 4% TP ONE (10:25)
== END 2019-02-22 10:21 | disposition home or self-care (01) ==
LOC: WOUND 10:20
PROVIDERS: ATTEND Surgery
DX: I70.243 Atherosclerosis of native arteries of left leg with ulceration of ankle (principal); L97.322 Non-pressure chronic ulcer of left ankle with fat layer exposed; I69.954 Hemiplegia and hemiparesis following unspecified cerebrovascular disease affecting left non-dominant side; F01.50 Vascular dementia, unspecified severity, without behavioral disturbance, psychotic disturbance, mood disturbance, and anxiety

== ENCOUNTER 2019-03-15 10:09 | Outpatient (CLI) | payer MEDICARE ==
[2019-03-15] MEDS ORDERED: LIDOCAINE (4%) 40 MG/ML TOPICAL SOLN 50 ML BOTTLE TP ONE (10:30)
== END 2019-03-15 10:10 | disposition home or self-care (01) ==
LOC: WOUND 10:09
PROVIDERS: ATTEND Surgery
DX: I70.243 Atherosclerosis of native arteries of left leg with ulceration of ankle (principal); L97.322 Non-pressure chronic ulcer of left ankle with fat layer exposed; F01.50 Vascular dementia, unspecified severity, without behavioral disturbance, psychotic disturbance, mood disturbance, and anxiety; G81.94 Hemiplegia, unspecified affecting left nondominant side; Z86.73 Personal history of transient ischemic attack (TIA), and cerebral infarction without residual deficits

== ENCOUNTER 2019-03-25 10:11 | Outpatient (CLI) | payer MEDICARE ==
[2019-03-25] MEDS ORDERED: LIDOCAINE (4%) 40 MG/ML TOPICAL SOLN 50 ML BOTTLE TP ONE (10:26)
== END 2019-03-25 10:12 | disposition home or self-care (01) ==
LOC: WOUND 10:11
PROVIDERS: ATTEND Surgery
DX: I70.243 Atherosclerosis of native arteries of left leg with ulceration of ankle (principal); L97.322 Non-pressure chronic ulcer of left ankle with fat layer exposed; F01.50 Vascular dementia, unspecified severity, without behavioral disturbance, psychotic disturbance, mood disturbance, and anxiety; G81.94 Hemiplegia, unspecified affecting left nondominant side; Z86.73 Personal history of transient ischemic attack (TIA), and cerebral infarction without residual deficits